=== PATIENT | female | born 1955 | race African-American/Black ===

== ENCOUNTER 2021-07-02 13:28 | Observation (INO) ==
[2021-07-02 14:57] LABS: Albumin 3.5 G/DL (3.4-5.0); Bilirubin,Total 0.9 MG/DL (0.20-1.00); Osmolality,Calculated 273.7 MOS/KG (273-304); Potassium 3.6 MMOL/L (3.5-5.1); Total Protein 7.8 G/DL (6.4-8.2)
[2021-07-02 15:07] LABS: Basophils % 0.4 % (0.0-0.8); Eosinophils # 0.1 10*3/uL (0.0-0.87); Eosinophils % 1.7 % (0.00-10.9); Hematocrit 39.3 VOL% (35.7-47.0); Hemoglobin 13.4 GM/DL (12.0-16.0); Immature Granulocytes % 0.4 %; Immature Granulocytes Absolute 0.03 #; Lymphocytes # 2.4 10*3/uL (1.4-4.0); Lymphocytes % 33.3 % (21.3-54.2); Mean Corpuscular HGB Conc 34.1 GM/DL (32-36); Mean Corpuscular Volume 74.7 FL (87-102); Mean Platelet Volume 9.9 FL (9.6-12.0); Monocytes % 7.7 % (1.7-12.7); Neutrophils % 56.5 % (38.7-73.9); Platelet Count 317 T/CUMM (130-400); Red Blood Count 5.26 MC/CUMM (3.8-5.5); Red Cell Distribution Width 14.2 % (9.3-17.3); White Blood Count 7.2 T/CUMM (4-12)
[2021-07-02] MEDS ORDERED: ALUM/MAG/SIMETH/LIDO VISC 1:1 30 ML BOTTLE PO STA (18:13)
[2021-07-02] MEDS ORDERED: GLUCAGON 1 MG VIAL IM PRN (19:42)
[2021-07-02] MEDS ORDERED: MAGNESIUM SULF RIDER 2 GM/50 ML PREMIX IV PRN (19:42)
[2021-07-02] MEDS ORDERED: POTASSIUM CHLORIDE 20 MEQ TABLET PO PRN ×2 (19:42)
[2021-07-02] MEDS ORDERED: ACETAMINOPHEN 325 MG TABLET PO PRN (19:42)
[2021-07-02] MEDS ORDERED: MAGNESIUM SULF RIDER 4 GM/100 ML PREMIX IV PRN (19:42)
[2021-07-02] MEDS ORDERED: DEXTROSE 10% 250 ML BAG IV PRN (19:49)
[2021-07-02] MEDS ORDERED: MORPHINE 4 MG/1 ML VIAL IV PRN (19:50)
[2021-07-02] MEDS: LACTATED RINGERS 1,000 ML IV SCH (20:40)
[2021-07-02] MEDS: ENOXAPARIN 40 MG/0.4 ML SYRINGE SUBCUT SCH (21:20)
[2021-07-02] MEDS: ONDANSETRON 4 MG/2 ML VIAL IV PRN (21:46)
[2021-07-03] MEDS ORDERED: MELATONIN 3 MG TABLET PO ONE (00:11)
[2021-07-03] MEDS ORDERED: ALUM/MAG/SIMETH/LIDO VISC 1:1 30 ML BOTTLE PO ONE (08:01)
[2021-07-03] MEDS ORDERED: PANTOPRAZOLE 40 MG VIAL IV SCH (09:00)
[2021-07-03 09:19] LABS: Albumin 3.1 G/DL (3.4-5.0); Calcium 8.5 MG/DL (8.5-10.1); Osmolality,Calculated 278.3 MOS/KG (273-304); Potassium 3.4 MMOL/L (3.5-5.1); Risk Ratio 2.71; Thyroid Stimulating Hormone 2.57 uIU/ml (0.358-3.74); Total Protein 6.9 G/DL (6.4-8.2)
[2021-07-03] MEDS: ASPIRIN EC 325 MG TABLET PO SCH (09:50)
[2021-07-03] MEDS: ONDANSETRON 4 MG/2 ML VIAL IV PRN (09:50)
[2021-07-03] MEDS: LACTATED RINGERS 1,000 ML IV SCH ×2 (09:50→20:22)
[2021-07-03] MEDS: GABAPENTIN 300 MG CAPSULE PO SCH ×2 (15:47→20:23)
[2021-07-03] MEDS: PANTOPRAZOLE 40 MG TABLET PO SCH (20:23)
[2021-07-03] MEDS: ENOXAPARIN 40 MG/0.4 ML SYRINGE SUBCUT SCH (20:23)
[2021-07-03] MEDS: METOPROLOL TARTRATE 50 MG TABLET PO SCH (20:23)
[2021-07-03] MEDS ORDERED: LATANOPROST 0.005% OPH SOLN 2.5 ML BOTTLE BOTH EYES SCH (21:00)
[2021-07-04] MEDS: LACTATED RINGERS 1,000 ML IV SCH ×2 (04:17→14:51)
[2021-07-04 04:57] LABS: Basophils % 0.7 % (0.0-0.8); Eosinophils # 0.2 10*3/uL (0.0-0.87); Eosinophils % 3.3 % (0.00-10.9); Hematocrit 33.4 VOL% (35.7-47.0); Immature Granulocytes % 0.4 %; Immature Granulocytes Absolute 0.02 #; Lymphocytes # 2.6 10*3/uL (1.4-4.0); Lymphocytes % 48.4 % (21.3-54.2); Mean Corpuscular HGB Conc 32.9 GM/DL (32-36); Mean Corpuscular Volume 77.5 FL (87-102); Monocytes % 9.2 % (1.7-12.7); Platelet Count 202 T/CUMM (130-400); Red Blood Count 4.31 MC/CUMM (3.8-5.5); Red Cell Distribution Width 14.2 % (9.3-17.3); White Blood Count 5.4 T/CUMM (4-12)
[2021-07-04 05:14] LABS: Calcium 8.3 MG/DL (8.5-10.1); Osmolality,Calculated 283.8 MOS/KG (273-304); Potassium 3.6 MMOL/L (3.5-5.1)
[2021-07-04 05:22] LABS: Eosinophils 5 % (0-10); Hypochromia Slight; Lymphocytes 53 % (20-55); Microcytosis Slight; Platelet Estimate Adequate; Segmented Neutrophils 39 % (50-85); Total Cells Counted 100
[2021-07-04] MEDS ORDERED: ALUMINUM/MAGNES/SIMETH MAX STR 30 ML UDCUP PO ONE (08:14)
[2021-07-04] MEDS ORDERED: CITALOPRAM 20 MG TABLET PO SCH (09:00)
[2021-07-04] MEDS: ASPIRIN EC 325 MG TABLET PO SCH (10:06)
[2021-07-04] MEDS: PANTOPRAZOLE 40 MG TABLET PO SCH (10:07)
[2021-07-04] MEDS: METOPROLOL TARTRATE 50 MG TABLET PO SCH (10:07)
[2021-07-04] MEDS: GABAPENTIN 300 MG CAPSULE PO SCH (10:07)
[2021-07-04 12:38] VITALS: BP 143/78
== END 2021-07-04 14:39 | disposition home or self-care (01) ==
LOC: N.EDINP 13:28 → N.ED 13:28 → N.TELEN 22:50
PROVIDERS: ADMIT Internal Medicine; ATTEND Internal Medicine

== ENCOUNTER 2022-03-08 07:12 | Observation (INO) ==
[2022-03-08] MEDS ORDERED: NITROGLYCERIN SL 0.4 MG TABLET SL PRN (08:27)
[2022-03-08] MEDS ORDERED: ASPIRIN 325 MG TABLET PO STA (08:27)
[2022-03-08 08:38] LABS: Basophils # 0.1 10*3/uL (0.0-0.2); Basophils % 0.7 % (0.0-0.8); Eosinophils # 0.1 10*3/uL (0.0-0.87); Eosinophils % 1.4 % (0.00-10.9); Hematocrit 34.8 VOL% (35.7-47.0); Hemoglobin 11.7 GM/DL (12.0-16.0); Immature Granulocytes % 0.4 %; Immature Granulocytes Absolute 0.03 #; Mean Corpuscular HGB Conc 33.6 GM/DL (32-36); Mean Corpuscular Volume 74.4 FL (87-102); Mean Platelet Volume 9.6 FL (9.6-12.0); Monocytes # 0.6 10*3/uL (0.11-0.8); Monocytes % 8.7 % (1.7-12.7); Neutrophils % 61.8 % (38.7-73.9); Platelet Count 220 T/CUMM (130-400); Red Blood Count 4.68 MC/CUMM (3.8-5.5); Red Cell Distribution Width 15.2 % (9.3-17.3); White Blood Count 7.3 T/CUMM (4-12)
[2022-03-08 08:44] LABS: Calcium 9.1 MG/DL (8.5-10.1); Potassium 3.5 MMOL/L (3.5-5.1)
[2022-03-08] MEDS ORDERED: ONDANSETRON 4 MG/2 ML VIAL ONE ×2 (10:32→12:55)
[2022-03-08] MEDS ORDERED: MORPHINE 2 MG/1 ML SYRINGE IV PRN (11:28)
[2022-03-08] MEDS ORDERED: ACETAMINOPHEN 325 MG TABLET PO PRN (11:28)
[2022-03-08] MEDS ORDERED: ENOXAPARIN 40 MG/0.4 ML SYRINGE SUBCUT SCH (11:30)
[2022-03-08] MEDS ORDERED: ALUM/MAG/SIMETH/LIDO VISC 1:1 30 ML BOTTLE PO STA (11:31)
[2022-03-08] MEDS ORDERED: ALUMINUM/MAGNES/SIMETH MAX STR 30 ML UDCUP PO PRN (11:31)
[2022-03-08] MEDS ORDERED: hydrALAZINE 20 MG/1 ML VIAL IV PRN (11:34)
[2022-03-08 12:22] LABS: % Iron Saturation 14.5 % (18-50)
[2022-03-08] MEDS: SODIUM CHLORIDE 0.9% 1,000 ML IV SCH (12:45)
[2022-03-08 20:20] LABS: Folate 10.68 NG/ML (5.38-24.0)
[2022-03-08] MEDS ORDERED: ZALEPLON 5 MG CAPSULE PO PRN (20:54)
[2022-03-08] MEDS ORDERED: amLODIPine 10 MG TABLET PO SCH (21:00)
[2022-03-08] MEDS ORDERED: LATANOPROST 0.005% OPH SOLN 2.5 ML BOTTLE BOTH EYES SCH (21:00)
[2022-03-08] MEDS ORDERED: ROSUVASTATIN 10 MG TABLET PO SCH (21:00)
[2022-03-08] MEDS: METOPROLOL TARTRATE 50 MG TABLET PO SCH (21:11)
[2022-03-08] MEDS: levETIRAcetam 500 MG TABLET PO SCH (21:11)
[2022-03-08] MEDS: PANTOPRAZOLE 40 MG TABLET PO SCH (21:12)
[2022-03-09] MEDS: SODIUM CHLORIDE 0.9% 1,000 ML IV SCH (02:05)
[2022-03-09 05:15] LABS: Basophils % 0.6 % (0.0-0.8); Eosinophils # 0.2 10*3/uL (0.0-0.87); Eosinophils % 3.4 % (0.00-10.9); Hematocrit 32.6 VOL% (35.7-47.0); Hemoglobin 10.9 GM/DL (12.0-16.0); Immature Granulocytes % 0.3 %; Immature Granulocytes Absolute 0.02 #; Lymphocytes # 2.5 10*3/uL (1.4-4.0); Lymphocytes % 35.3 % (21.3-54.2); Mean Corpuscular HGB Conc 33.4 GM/DL (32-36); Mean Corpuscular Volume 75.6 FL (87-102); Mean Platelet Volume 10.2 FL (9.6-12.0); Monocytes # 0.7 10*3/uL (0.11-0.8); Monocytes % 10.5 % (1.7-12.7); Neutrophils % 49.9 % (38.7-73.9); Platelet Count 218 T/CUMM (130-400); Red Blood Count 4.31 MC/CUMM (3.8-5.5); Red Cell Distribution Width 15.5 % (9.3-17.3); White Blood Count 7.1 T/CUMM (4-12)
[2022-03-09 05:32] LABS: Albumin 2.7 G/DL (3.4-5.0); Bilirubin,Total 0.9 MG/DL (0.20-1.00); Calcium 8.4 MG/DL (8.5-10.1); Osmolality,Calculated 285.7 MOS/KG (273-304); Potassium 4.1 MMOL/L (3.5-5.1); Risk Ratio 3.19; Total Protein 6.4 G/DL (6.4-8.2); VLDL Cholesterol 27.4 MG/DL
[2022-03-09] MEDS ORDERED: FLUTICASONE 50 MCG NASAL SPRAY 16 GM BOTTLE BOTH NARES SCH (09:00)
[2022-03-09] MEDS: PANTOPRAZOLE 40 MG TABLET PO SCH (09:16)
[2022-03-09] MEDS: METOPROLOL TARTRATE 50 MG TABLET PO SCH (09:16)
[2022-03-09] MEDS: levETIRAcetam 500 MG TABLET PO SCH (09:17)
[2022-03-09 12:02] VITALS: BP 126/83
== END 2022-03-09 13:20 | disposition home or self-care (01) ==
LOC: N.ED 07:12 → N.EDINP 07:12 → N.5E 15:30
PROVIDERS: ADMIT Internal Medicine; ATTEND Internal Medicine